=== PATIENT | male | born 1950 | race Caucasian/White ===

== ENCOUNTER 2022-01-16 19:45 | Emergency (ER) | payer OTHER ==
[2022-01-16] MEDS ORDERED: Ondansetron 4 MG/2 ML SDV IVPUSH ONE (20:21)
[2022-01-16] MEDS ORDERED: Sodium Chloride 0.9% 10 ML Syringe FLUSH PRN (20:22)
[2022-01-16] MEDS: HYDROmorphone 1 MG/ML Syringe IVPUSH PRN (20:45)
[2022-01-16] MEDS ORDERED: Sodium Chloride 0.9% 75 ML IV SCH (21:15)
[2022-01-16] MEDS ORDERED: Iopamidol 612 MG/ML 100 ML Bottle IV SCH (21:15)
[2022-01-16 21:21] LABS: CORONAVIRUS COVID-19 NAA NEGATIVE (NEGATIVE)
[2022-01-16] MEDS ORDERED: Lidocaine 2% Jelly 10 ML Urojet MUCMEM ONE (23:10)
[2022-01-17] MEDS: HYDROmorphone 1 MG/ML Syringe IVPUSH PRN (00:14)
== END 2022-01-17 00:24 ==
LOC: JP.ED 19:45
DX: K56.609 Unspecified intestinal obstruction, unspecified as to partial versus complete obstruction (principal); D66 Hereditary factor VIII deficiency; K66.0 Peritoneal adhesions (postprocedural) (postinfection); E78.00 Pure hypercholesterolemia, unspecified; I10 Essential (primary) hypertension; N40.0 Benign prostatic hyperplasia without lower urinary tract symptoms; M19.90 Unspecified osteoarthritis, unspecified site; Z88.8 Allergy status to other drugs, medicaments and biological substances; Z79.899 Other long term (current) drug therapy; Z20.822 Contact with and (suspected) exposure to COVID-19
CPT/HCPCS: 0241U; 36415; 43752; 74018; 74018-26; 74177; 80053; 84484; 85025; 85610; 86140; 93005; 96374; 96375; 96376; 99284; 99285-25; J1170; J2405; Q9967

== ENCOUNTER 2024-03-25 08:44 | Day surgery (SDC) | payer MEDICARE, BC ==
[2024-03-25] MEDS ORDERED: Sodium Chloride 0.9% 10 ML Syringe FLUSH PRN (09:30)
== END 2024-03-25 10:36 | disposition home or self-care (01) ==
LOC: JP.SDS 08:44
PROVIDERS: ATTEND Ophthalmology
DX: H25.11 Age-related nuclear cataract, right eye (principal); I10 Essential (primary) hypertension
CPT/HCPCS: V2632

== ENCOUNTER 2025-10-05 07:33 | Day surgery (SDC) | payer MEDICARE, BC ==
[~2025-10-05 07:33] MED LIST: Propofol 200 MG/20 ML SDV ONE; fentaNYL 100 MCG/2 ML SDV ONE
[2025-10-05] MEDS: Lactated Ringers 1,000 ML IV SCH (07:54)
[2025-10-05] MEDS: Nozin Nasal Sanitizer NASBOTH ONE (07:54)
[2025-10-05 08:50] LABS: PLATELET COUNT,PLT 182.0 K/uL (130-375); RED BLOOD CELL COUNT 3.82 M/uL (4.14-5.76); WHITE BLOOD CELL COUNT,WBC 6.6 K/uL (3.2-11.0)
[2025-10-05] MEDS ORDERED: Propofol 200 MG/20 ML SDV ONE (09:06)
[2025-10-05] MEDS: Bupivacaine 0.5%/EPINEPHrine 1:200,000 50 ML MDV ONE (09:10)
[2025-10-05 09:14] LABS: BLOOD UREA NITROGEN,BUN 13.0 mg/dL (7-18); CARBON DIOXIDE,CO2 29.0 mmol/L (21-32); CHLORIDE,CL 103.0 mmol/L (100-108); CREATININE 0.8 mg/dL (0.8-1.3); EST CRCL DRUG DOSING (CG) 86.18 mL/min; ESTIMATED GFR 94.0 mL/min (>60); GLUCOSE RANDOM 106.0 mg/dL (74-106); POTASSIUM,K 3.3 mmol/L (3.6-5.2); SODIUM,NA 140.0 mmol/L (140-148)
[2025-10-05] MEDS: Acetaminophen/HYDROcodone 325-5 MG Tab PO ONE (10:19)
== END 2025-10-05 10:31 | disposition home or self-care (01) ==
LOC: JP.SDS 07:33
PROVIDERS: ATTEND Specialist
DX: G56.01 Carpal tunnel syndrome, right upper limb (principal); R20.0 Anesthesia of skin; E78.00 Pure hypercholesterolemia, unspecified; I10 Essential (primary) hypertension; Z88.8 Allergy status to other drugs, medicaments and biological substances; Z79.899 Other long term (current) drug therapy
CPT/HCPCS: 01810; 36415; 64721; 80048; 85027; A9270; J2704; J3010; J3490; J7120; J0665; J0690